=== PATIENT | male | born 1935 | race Two or more races ===

== ENCOUNTER 2023-12-22 22:04 | Emergency (ER) | payer MEDICARE, OTHER ==
[~2023-12-22] VITALS: Ht 177.8 cm; Wt 99.8 kg
[2023-12-22 22:05] VITALS: BP_SYST 121; PULSE 84; RESP 20; TEMP 99.1; O2SAT 95
[2023-12-22 23:05] LABS: BASOPHILS % (AUTO) 0.3 % (0.0-2.0); EOSINOPHILS % (AUTO) 0.4 % (0.0-4.0); HEMATOCRIT 36.9 % (36-54); HEMOGLOBIN 12.7 g/dL (14.0-18.0); LYMPHOCYTES # (AUTO) 0.4 K/uL (1.0-5.5); LYMPHOCYTES % (AUTO) 4.7 % (20.5-51.5); MEAN CORPUSCULAR HEMOGLOBIN 33 pg (27-31); MEAN CORPUSCULAR HGB CONC 34 % (32-36); MEAN CORPUSCULAR VOLUME 95 fL (79.0-98.0); MONOCYTES # (AUTO) 0.8 K/uL (0.0-1.0); MONOCYTES % (AUTO) 8.9 % (1.7-9.3); NEUTROPHILS # (AUTO) 7.4 K/uL (1.8-7.7); NEUTROPHILS % (AUTO) 85.7 % (40.0-70.0); PLATELET COUNT (AUTO) 126 K/uL (130-430); RED BLOOD CELL COUNT(AUTO) 3.87 MIL/uL (4.2-6.2); RED CELL DISTRIBUTION WIDTH 14.9 % (9.0-15.0); WHITE BLOOD COUNT (AUTO) 8.7 K/uL (4.8-10.8)
[2023-12-22 23:11] LABS: INFLUENZA TYPE A Negative (NEGATIVE); INFLUENZA TYPE B NEGATIVE (NEGATIVE)
[2023-12-22 23:12] LABS: COVID19 ANTIGEN SOFIA FIA POSITIVE (NEGATIVE)
[2023-12-22 23:13] LABS: INR 1.9 (0.80-1.20); PROTHROMBIN TIME 19.2 SECS (9.5-12.5)
[2023-12-22 23:29] LABS: ALANINE AMINOTRANSFERASE 14 U/L (12-78); ANION GAP 9 (5-15); ASPARTATE AMINOTRANSFERASE 15 U/L (10-37); BILIRUBIN,DIRECT 0.3 mg/dL (0.0-0.3); CALCIUM 8.6 mg/dL (8.4-11.0); CARBON DIOXIDE 23 mmol/L (23-29); CHLORIDE 104 mmol/L (98-107); CREATININE 1.71 mg/dL (0.55-1.30); GLUCOSE 195 mg/dL (74-106); POTASSIUM 3.8 mmol/L (3.5-5.1); SODIUM SERUM 136 mmol/L (136-145); TOTAL BILIRUBIN 1.7 mg/dL (0.0-1.0); TOTAL PROTEIN, SERUM 7.1 g/dL (6.4-8.3); UREA NITROGEN, BLOOD 22 mg/dL (8-21)
[2023-12-22] MEDS ORDERED: cefTRIAXone 1 GM VIAL ONE (23:41)
[2023-12-22] MEDS ORDERED: AZITHROMYCIN 500 MG/VIAL (ZITHROMAX) IV ONE (23:42)
[2023-12-22] MEDS: cefTRIAXone 1 GM in D5W 50 ML IV ONE (23:46)
[2023-12-22] MEDS: AZITHROMYCIN 500 MG in NS 250 ML IV ONE (23:47)
[2023-12-23 03:41] VITALS: BP_SYST 139; PULSE 60; RESP 21; TEMP 98.7; O2SAT 96
== END 2023-12-23 03:40 | disposition short-term general hospital (02) ==
LOC: SED 22:04
DX: U07.1 COVID-19 (principal); J18.1 Lobar pneumonia, unspecified organism; N28.9 Disorder of kidney and ureter, unspecified; R51.9 Headache, unspecified; E11.9 Type 2 diabetes mellitus without complications; I10 Essential (primary) hypertension; Z79.899 Other long term (current) drug therapy
CPT/HCPCS: 99285; 70450; 96365; 71045; 87426; 80076; 80048; 85025; 85610; 85730; 87040; 84484; 36415; 93005; 72125; 83605; 87804 ×2; 96367; J0456; J0696